=== PATIENT | female | born 2005 | race African-American/Black ===

== ENCOUNTER 2023-08-30 16:27 | Emergency (ER) | payer BC ==
[2023-08-30 18:12] LABS: Bilirubin Neg (Negative); Blood, Urine 250 (Negative); Clarity Bloody (Clear); Glucose, Urine (Dipstick) Normal (Negative); Ketone, Urine 5 mg/dL (Negative); Leukocyte 25 (Negative); Nitrite Negative (Negative); Protein, Urine (Dipstick) 30 mg/dl (Neg-Trace); Urobilinogen Normal mg/dL (Less than 2)
[2023-08-30 18:18] LABS: Bacteria/HPF 1+ HPF (None Seen); CAUTI Indications for Culture Dysuria,urgency,freq; Mucous/LPF Rare LPF (<2+); RBC/HPF Greater than 50 HPF (0-3); WBC/HPF 0-3 HPF (0-3)
[2023-08-30 18:19] LABS: Urine Culture Reflex No No
[2023-08-30] MEDS ORDERED: Lidocaine 1% MPF 2 ML VIAL ONE (19:36)
[2023-08-30] MEDS ORDERED: Azithromycin 250 MG TAB ONE ×2 (19:37→19:38)
[2023-08-30] MEDS ORDERED: cefTRIAXone (ROCEPHIN) 500 MG VIAL ONE (19:37)
[2023-08-30 20:06] LABS: Pregnancy Test - Urine (BHCG) Negative (Negative); Pregu Control Background? CLEAR/WHITE (CLR/WHITE); Pregu Control Bar Appear? YES (CONTROL BAR)
[2023-08-31 13:21] LABS: Chlamydia by PCR, Vaginal Swab Not Detected (NotDetected); GC by PCR, Vaginal Swab DETECTED (NotDetected)
== END 2023-08-30 21:29 | disposition home or self-care (01) ==
LOC: CSHERS 16:27
DX: R30.0 Dysuria (principal); Z20.2 Contact with and (suspected) exposure to infections with a predominantly sexual mode of transmission
CPT/HCPCS: 81001; 81025; 87086; 87480; 87491; 87510; 87591; 87660; 96372; 99283; J0696

== ENCOUNTER 2025-07-25 00:54 | Inpatient (IN) | payer BC ==
[2025-07-25 01:14] VITALS: BMI 39.4
[2025-07-25] MEDS ORDERED: hydrALAZINE 20 MG/ML VIAL SLOW IVP PRN ×2 (01:48→02:40)
[2025-07-25 02:27] LABS: Hematocrit 38.0 % (34.9-44.5); Hemoglobin 12.6 g/dL (12.0-15.5); Mean Corpuscular Hemoglobin 29.2 pg (27.0-33.0); Mean Corpuscular Volume 88.2 fL (81.6-98.3); Platelet Count 211 10x3/uL (150-450); Red Blood Cell (RBC) Count 4.31 10x6/uL (3.90-5.03); White Blood Cell (WBC) Count 24.08 10x3/uL (3.5-10.5)
[2025-07-25 02:38] LABS: MDiff Complete? YES; RBC Morphology Within Normal Limits
[2025-07-25] MEDS ORDERED: Ondansetron PF 4 MG/2 ML Vial IVP PRN (02:40)
[2025-07-25] MEDS ORDERED: Calcium Gluc 4.6 MEQ/10 ML (100 MG/ML) SLOW IVP PRN (02:43)
[2025-07-25] MEDS ORDERED: Oxytocin 30 units/NS 500 ML 500 ML IV SCH (02:45)
[2025-07-25] MEDS: Magnesium Sulfate 20 gm/500 ml 20 GM/500 ML BAG ONE (03:02)
[2025-07-25 03:19] LABS: Hep B Surf Ag - L&D Non-Reactive S/CO (NonReactive)
[2025-07-25 03:21] LABS: Syphilis Antibody Index 0.07 S/CO (<1.00 Non-Reactive)
[2025-07-25] MEDS ORDERED: Lidocaine 1% (PF) 30 ML VIAL SC PRN (04:03)
[2025-07-25] MEDS: Penicillin G Potassium 5 MILL.UNITS in Sodium Chloride 0.9% 100 ML IVPB SCH (04:32)
[2025-07-25 05:15] LABS: Glucose, Urine (Dipstick) Normal (Negative); Leukocyte Negative (Negative); Protein, Urine (Dipstick) Negative (Neg-Trace); Specific Gravity, Urine 1.015 (1.005-1.030)
[2025-07-25 06:50] LABS: ALT (SGPT) 14 U/L (Less than 34); AST (SGOT) 23 U/L (11-34); Albumin 2.7 g/dL (3.1-4.5); Alkaline Phosphatase 105 U/L (40-110); Anion Gap 18 mmol/L (10-20); BUN (Urea Nitrogen) 10 mg/dL (7.0-18.7); Bilirubin, Total 0.2 mg/dL (0.3-1.2); Calc. Creatinine Clearance 184 mL/min (70-130); Calcium 8.7 mg/dL (7.8-10.44); Carbon Dioxide 18 mmol/L (22-29); Chloride 105 mmol/L (98-107); Globulin 4.5 g/dL (2.4-3.5); Glucose 112 mg/dL (70-105); Potassium 4.8 mmol/L (3.5-5.1); Sodium 136 mmol/L (136-145)
[2025-07-25] MEDS ORDERED: cefTRIAXone\\ROCEPHIN 500 MG in Sodium Chloride 0.9% 0 ML IVPB ONE (08:30)
[2025-07-25] MEDS ORDERED: Penicillin G 2.5 MILL.units 2.5 MILL.UNITS in Premix 1 BAG IVPB SCH (08:30)
[2025-07-25] MEDS: cefTRIAXone\\ROCEPHIN 500 MG in Sodium Chloride 0.9% 100 ML IVPB SCH (08:52)
[2025-07-25] MEDS: Magnesium Sulfate 20 gm/500 ml 20 GM/500 ML BAG IVPB SCH (11:28)
[2025-07-25] MEDS: Fluconazole 100 MG TAB PO SCH (15:51)
[2025-07-25] MEDS: metroNIDAZOLE 500 MG TAB PO SCH (20:47)
[2025-07-26 07:38] LABS: Hematocrit 35.4 % (34.9-44.5); Hemoglobin 11.4 g/dL (12.0-15.5); Mean Corpuscular Hemoglobin 28.9 pg (27.0-33.0); Mean Corpuscular Volume 89.8 fL (81.6-98.3); Platelet Count 220 10x3/uL (150-450); Red Blood Cell (RBC) Count 3.94 10x6/uL (3.90-5.03); White Blood Cell (WBC) Count 25.10 10x3/uL (3.5-10.5)
[2025-07-26] MEDS ORDERED: Mag-Al 1200 mg/1200 mg/30 ML UDCUP PO PRN (07:51)
[2025-07-26 07:52] LABS: ALT (SGPT) 13 U/L (Less than 34); AST (SGOT) 17 U/L (11-34); Albumin 2.6 g/dL (3.1-4.5); Alkaline Phosphatase 90 U/L (40-110); Anion Gap 16 mmol/L (10-20); BUN (Urea Nitrogen) 9 mg/dL (7.0-18.7); Bilirubin, Total 0.2 mg/dL (0.3-1.2); Calc. Creatinine Clearance 181 mL/min (70-130); Calcium 7.4 mg/dL (7.8-10.44); Carbon Dioxide 17 mmol/L (22-29); Chloride 106 mmol/L (98-107); Globulin 4.2 g/dL (2.4-3.5); Glucose 224 mg/dL (70-105); Potassium 4.6 mmol/L (3.5-5.1); Sodium 134 mmol/L (136-145)
[2025-07-26 08:01] LABS: Platelet Adequacy Comment Appears Adequate; RBC Morphology Within Normal Limits
[2025-07-26 08:02] LABS: MDiff Complete? YES
[2025-07-26 09:27] LABS: Protein, Urine Random Quant 57.0 mg/dL (1-14)
[2025-07-27 07:08] LABS: Hematocrit 37.6 % (34.9-44.5); Hemoglobin 12.1 g/dL (12.0-15.5); Mean Corpuscular Hemoglobin 28.9 pg (27.0-33.0); Mean Corpuscular Volume 89.7 fL (81.6-98.3); Platelet Count 235 10x3/uL (150-450); Red Blood Cell (RBC) Count 4.19 10x6/uL (3.90-5.03); White Blood Cell (WBC) Count 29.62 10x3/uL (3.5-10.5)
[2025-07-27 07:28] LABS: MDiff Complete? YES; Platelet Adequacy Comment Appears Adequate; RBC Morphology Within Normal Limits
[2025-07-27] MEDS ORDERED: Fluconazole 100 MG TAB PO SCH (09:00)
[2025-07-27 09:08] LABS: Mononucleosis NEGATIVE (NEGATIVE)
[2025-07-27 09:09] LABS: MONO NEGATIVE CONTROL ZONE White (Negative) (White); MONO POSITIVE CONTROL Pink Line (Positive) (PINK/RED)
[2025-07-27 11:53] LABS: Chlamydia by PCR, Vaginal Swab Not Detected (NotDetected); GC by PCR, Vaginal Swab Not Detected (NotDetected)
[2025-07-27 12:18] VITALS: BP 136/79; TEMP 98.4
== END 2025-07-27 20:32 | disposition short-term general hospital (02) | DRG 832 ==
LOC: CSHLD/OP 00:54 → CSHLD 03:01 → CSHANTE 07-26 04:30 → CSHLD 07-27 12:45
PROVIDERS: ADMIT Obstetrics & Gynecology; ATTEND Obstetrics & Gynecology
DX: O46.92 Antepartum hemorrhage, unspecified, second trimester (principal); O98.812 Other maternal infectious and parasitic diseases complicating pregnancy, second trimester; O99.810 Abnormal glucose complicating pregnancy; B37.31 Acute candidiasis of vulva and vagina; Z79.899 Other long term (current) drug therapy; Z3A.27 27 weeks gestation of pregnancy
CPT/HCPCS: 36415; 36416; 51702; 76815; 80053; 81003; 82570; 84156; 85025; 86308; 86780; 86850; 86900; 86901; 87040; 87086; 87340; 87480; 87491; 87510; 87591; 87660; 99285; J0290; J0696; J0702; J2540; J3475; J7120